=== PATIENT | male | born 1980 | race Caucasian/White ===

== ENCOUNTER 2018-03-29 01:21 | Emergency (ER) | payer SELFPAY ==
[2018-03-29 01:43] VITALS: BP 120/74
[2018-03-29] MEDS ORDERED: NACL 0.9% 1000 ML 1,000 ML IV ONE (01:57)
[2018-03-29] MEDS ORDERED: ZOFRAN IV ONE (01:57)
[2018-03-29] MEDS ORDERED: DILAUDID IV ONE (01:59)
--- NOTE | 2018-03-29 02:02 | Emergency Department Report ---
ED Fall HPI - General Chief Complaint: Fall Stated Complaint: FALL Time Seen by Provider: 03/29/18 01:45 Source: patient, EMS Mode of arrival: Stretcher Limitations: Language Barrier, Other (family member provided interpretaion) - History of Present Illness Initial Comments: Mr. 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 Severe right flank pain. MD Complaint: fall -: Sudden Fall From: from height (distance) (4-5 feet) When Fall Occurred: just prior to arrival Fall Witnessed: yes, by bystander Place Fall Occurred: work Loss of Consciousness: none Prolonged Down Time?: no Symptoms Prior to Fall: none Severity: severe Severity scale (0 -10): 10 Quality: sharp Context: tripped/slipped - Related Data Previous Rx's Medication Instructions Recorded Last Taken Type Ibuprofen 800 mg PO QID 5 Days #20 tablet 03/29/18 Unknown Rx oxyCODONE /ACETAMINOPHEN [Percocet 1 tab PO Q6HR PRN #20 tablet 03/29/18 Unknown Rx 5/325] Allergies Allergy/AdvReac Type Severity Reaction Status Date / Time No Known Allergies Allergy Unverified 03/29/18 01:43 ED Review of Systems ROS: Stated complaint: FALL Other details as noted in HPI Comment: All other systems reviewed and negative Constitutional: denies: fever, malaise Respiratory: denies: cough Cardiovascular: denies: chest pain ED Past Medical Hx - Past Medical History Previous Medical History?: No - Surgical History Past Surgical History?: No - Social History Smoking Status: Current Every Day Smoker Substance Use Type: None - Medications Home Medications: Home Medications Medication Instructions Recorded Confirmed Last Taken Type Ibuprofen 800 mg PO QID 5 Days #20 tablet 03/29/18 Unknown Rx oxyCODONE /ACETAMINOPHEN [Percocet 1 tab PO Q6HR PRN #20 tablet 03/29/18 Unknown Rx 5/325] ED Physical Exam - General Limitations: Language Barrier (cousin provided interpreation), Physical Limitation General appearance: alert, in no apparent distress, other (appears in severe pain GCS 15) - Head Head exam: Present: atraumatic, normocephalic - Eye Eye exam: Present: normal appearance, PERRL, EOMI - ENT ENT exam: Present: normal exam, mucous membranes moist - Neck Neck exam: Present: normal inspection. Absent: tenderness, meningismus - Respiratory Respiratory exam: Present: normal lung sounds bilaterally. Absent: respiratory distress, wheezes, rales, rhonchi - Cardiovascular Cardiovascular Exam: Present: regular rate, normal rhythm, normal heart sounds. Absent: systolic murmur, diastolic murmur, rubs, gallop - GI/Abdominal GI/Abdominal exam: Present: soft, normal bowel sounds. Absent: distended, tenderness, guarding, rebound - Rectal Rectal exam: Present: deferred - Extremities Exam Extremities exam: Present: normal inspection - Back Exam Back exam: Present: normal inspection - Neurological Exam Neurological exam: Present: alert, oriented X3 - Psychiatric Psychiatric exam: Present: normal affect, normal mood - Skin Skin exam: Present: warm, dry, intact, normal color, other (large abrasion with bruising right flank). Absent: rash ED Course Vital Signs 03/29/18 01:39 Temperature 98.2 F Pulse Rate 84 Respiratory 16 Rate Blood Pressure 120/74 O2 Sat by Pulse 94 Oximetry ED Medical Decision Making - Lab Data Result diagrams: 03/29/18 02:13 03/29/18 02:13 - Radiology Data Radiology results: report reviewed CT chest: 2 rib fractures on the right posterior CT head, CT C-spine, CT abdomen and pelvis, CT thoracic spine, CT lumbar spine: No acute injury no acute process - Medical Decision Making Mr. Arzola fortunately only has 2 rib fractures to account for his injury. I was concerned for intra-abdominal retroperitoneal organ damage. He has 2 rib fractures at the 10th and 11th rib. No pneumothorax. He was prescribed Percocet and ibuprofen. Critical Care Time: Yes Critical care time in (mins) excluding proc time.: 40 Critical care attestation.: If time is entered above; I have spent that time in minutes in the direct care of this critically ill patient, excluding procedure time. ED Disposition Clinical Impression: Ribs, multiple fractures, Fall Disposition: DC-01 TO HOME OR SELFCARE Is pt being admited?: No Does the pt Need Aspirin: No Condition: Stable Instructions: Rib Fracture (ED) Prescriptions: Ibuprofen 800 mg PO QID 5 Days #20 tablet oxyCODONE /ACETAMINOPHEN [Percocet 5/325] 1 tab PO Q6HR PRN #20 tablet PRN Reason: Pain Referrals: PRIMARY CARE, [Primary Care Provider] - 3-5 Days [facility] [Outside] - 3-5 Days Forms: Work/School Release Form(ED) Time of Disposition: 03:27 Print Language: UGANDAN
[2018-03-29 02:27] LABS: Basophils # (Auto) 0.1 K/mm3 (0.0-0.1); Eosinophils # (Auto) 0.1 K/mm3 (0.0-0.4); Eosinophils % (Auto) 2.3 % (0.0-4.3); Hematocrit 48.1 % (35.5-45.6); Hemoglobin 16.4 gm/dl (11.8-15.2); Lymphocytes # (Auto) 1.3 K/mm3 (1.2-5.4); Lymphocytes % (Auto) 22.3 % (13.4-35.0); Mean Corpuscular HGB Conc 34 % (32-34); Mean Corpuscular Hemoglobin 33 pg (28-32); Mean Corpuscular Volume 98 fl (84-94); Monocytes # (Auto) 0.4 K/mm3 (0.0-0.8); Monocytes % (Auto) 7.5 % (0.0-7.3); Platelet Count 209 K/mm3 (140-440); Red Blood Count 4.93 M/mm3 (3.65-5.03); Red Cell Distribution Width 14.1 % (13.2-15.2)
[2018-03-29 02:40] LABS: Alanine Aminotransferase 20 units/L (7-56); Albumin 4.4 g/dL (3.9-5); BUN/Creatinine Ratio 16; Blood Urea Nitrogen 8 mg/dL (9-20); Calcium 8.5 mg/dL (8.4-10.2); Hemolysis Index 7
--- NOTE | 2018-03-29 02:55 | XRay Report ---
FINAL REPORT PROCEDURE: XR CHEST 1V AP TECHNIQUE: A portable AP chest radiograph was obtained at 03/29/2018 05:50 ([facility]) . CPT 16109 HISTORY: Fall. COMPARISON: No prior studies are available for comparison. FINDINGS: Heart: Normal. Mediastinum/Vessels: Normal. Lungs/Pleural space: Normal. Decreased lung volumes. Bony thorax: No acute osseous abnormality. Life support devices: None. IMPRESSION: Decreased lung volumes. No radiographic evidence of acute cardiopulmonary disease.
--- NOTE | 2018-03-29 03:03 | Cat Scan Report ---
FINAL REPORT PROCEDURE: CT CERVICAL SPINE WO CON TECHNIQUE: Computerized tomography of the cervical spine was performed from the skull base to T1 without contrast material. HISTORY: fall COMPARISON: No prior studies are available for comparison. FINDINGS: The skull base and foramen magnum are intact. The cervical vertebrae are intact. There are no fractures or malalignments. The facet joints are intact. Prevertebral soft tissues are normal in thickness. C1-2: No significant abnormality. C2-3: No significant abnormality. C3-4: No significant abnormality. C4-5: No significant abnormality. C5-6: No significant abnormality. C6-7: No significant abnormality. C7-T1: No significant abnormality. IMPRESSION: No significant abnormality.
--- NOTE | 2018-03-29 03:06 | Cat Scan Report ---
FINAL REPORT PROCEDURE: CT HEAD/BRAIN WO CON TECHNIQUE: Computerized tomography of the head was performed without contrast material. HISTORY: fall COMPARISON: No prior studies are available for comparison. FINDINGS: Skull and scalp: Normal. Paranasal sinuses: Normal. Ventricles and subarachnoid spaces: Normal. Cerebrum: No evidence of hemorrhage, acute infarction or mass . Cerebellum and brainstem: No evidence of hemorrhage, acute infarction or mass. Vasculature: Normal. Comments: None. IMPRESSION: Normal Examination
--- NOTE | 2018-03-29 03:13 | Cat Scan Report ---
FINAL REPORT PROCEDURE: CT THORACIC SPINE WO CON TECHNIQUE: Computerized axial tomography of the thoracic spine was performed from C7 - L1 without contrast material. HISTORY: Fall COMPARISON: No prior studies are available for comparison. FINDINGS: Thoracic vertebrae are intact. There are no fractures or malalignments. Disc spaces are within normal limits. The paraspinal soft tissues are unremarkable. IMPRESSION: Normal Examination
--- NOTE | 2018-03-29 03:16 | Cat Scan Report ---
FINAL REPORT PROCEDURE: CT LUMBAR SPINE WO CON TECHNIQUE: Computerized axial tomography of the lumbar spine was performed from T12 to the sacrum without contrast material. HISTORY: Fall COMPARISON: No prior studies are available for comparison. FINDINGS: There are no fractures or malalignments of the lumbar vertebrae. L1-2: No significant abnormality. L2-3: No significant abnormality. L3-4: No significant abnormality. L4-5: No significant abnormality. L5-S1: No significant abnormality. Other: The sacrum and sacroiliac joints are intact. The paraspinal soft tissues are unremarkable.. IMPRESSION: No significant abnormality
--- NOTE | 2018-03-29 03:18 | Cat Scan Report ---
FINAL REPORT PROCEDURE: CT ABDOMEN PELVIS W CON TECHNIQUE: Computerized axial tomography of the abdomen and pelvis was performed after the IV injection of iodinated nonionic contrast. HISTORY: fall COMPARISON: No prior studies are available for comparison. FINDINGS: Visualized lower thorax: No significant abnormality. Liver: Normal size and attenuation. There is no liver laceration. Spleen: Normal size and attenuation. There is no splenic laceration. Gallbladder and biliary system: Normal. Pancreas: Normal. Adrenals: Normal. Kidneys: Normal. GI tract: There is no bowel obstruction, colitis or enteritis. The appendix is normal.. Lymph nodes and mesentery: Normal. Vasculature: Normal. Bladder: Normal. Reproductive organs: Normal. Peritoneum: There is no hemoperitoneum.. Musculoskeletal structures: No significant abnormality. Other: None. IMPRESSION: Normal examination of the abdomen and pelvis
--- NOTE | 2018-03-29 03:23 | Cat Scan Report ---
FINAL REPORT PROCEDURE: CT CHEST W CON TECHNIQUE: Computerized axial tomography of the chest was performed during the IV injection of iodinated nonionic contrast. HISTORY: Fall COMPARISON: No prior studies are available for comparison. TECHNICAL QUALITY: Satisfactory. FINDINGS: Heart and pericardium: Normal. Thoracic aorta: There is no thoracic aortic aneurysm or dissection. There is no mediastinal hematoma.. Pulmonary vasculature: Normal. Lymph nodes: No enlarged thoracic lymph nodes. Lungs: Lungs are clear and expanded. There is no pulmonary contusion or infiltrate.. Pleural space: No effusion, thickening, or pneumothorax. Musculoskeletal structures: There are fractures of right ribs numbers 10 and 11. The thoracic spine and sternum are intact.. Upper abdominal structures: No significant abnormality. IMPRESSION: There is no thoracic aortic aneurysm or dissection. There is no mediastinal hematoma.. Lungs are clear and expanded. There is no pulmonary contusion or infiltrate.. There is no pneumothorax or pleural effusion. There are fractures of right ribs numbers 10 and 11. The thoracic spine and sternum are intact..
== END 2018-03-29 03:50 | disposition home or self-care (01) ==
LOC: ED 01:21
DX: S22.41XA Multiple fractures of ribs, right side, initial encounter for closed fracture (principal); F17.200 Nicotine dependence, unspecified, uncomplicated; W13.9XXA Fall from, out of or through building, not otherwise specified, initial encounter; Y93.H3 Activity, building and construction; Y99.0 Civilian activity done for income or pay; Y92.69 Other specified industrial and construction area as the place of occurrence of the external cause
CPT/HCPCS: 36415; 70450; 71045; 71260; 72125; 72128; 72131; 74177; 80053; 85025; 96374; 96375; 99291; J1170; J2405; J7030; Q9967